=== PATIENT | female | born 1945 | race Caucasian/White ===

== ENCOUNTER 2022-01-19 23:25 | Emergency (ER) | payer OTHER ==
[~2022-01-19] VITALS: Ht 162.6 cm; Wt 86.2 kg
== END 2022-01-20 01:57 | disposition home or self-care (01) ==
LOC: ER 23:25
DX: S09.90XA Unspecified injury of head, initial encounter (principal); W22.8XXA Striking against or struck by other objects, initial encounter
CPT/HCPCS: 70450

== ENCOUNTER → 2022-08-07 | Outpatient (CLI) | payer MEDICARE ==
[2022-08-07 19:08] LABS: BASOPHILS ABSOLUTE AUTO 0.04 K/mm3 (0.00-0.23); BASOPHILS PERCENT AUTO 1 % (0-2); EOSINOPHILS PERCENT AUTO 3 % (0-6); Hematocrit 42.9 % (33.0-51.0); IMMATURE GRAN ABSOLUTE AUTO 0.01 K/mm3 (0.00-0.10); IMMATURE GRAN PERCENT AUTO 0 % (0-1); LYMPHOCYTES ABSOLUTE AUTO 2.81 K/mm3 (0.84-5.20); LYMPHOCYTES PERCENT AUTO 38 % (21-46); MONOCYTES ABSOLUTE AUTO 0.56 K/mm3 (0.16-1.47); MONOCYTES PERCENT AUTO 8 % (4-13); Mean Corpuscular HGB 29.5 pg (26.0-34.0); Mean Corpuscular HGB Conc 32.6 g/dL (31.5-36.5); Mean Corpuscular Volume 90 fL (80-100); Mean Platelet Volume 11.1 fL (9.1-12.4); NEUTROPHILS ABSOLUTE AUTO 3.76 K/mm3 (1.96-9.15); NEUTROPHILS PERCENT AUTO 51 % (41-73); Platelet Count 271 K/mm3 (150-400); RDW Coefficient Variation 13.2 % (11.7-14.2); RDW Standard Deviation 43.7 fL (35.1-46.3); Red Blood Cell Count 4.75 M/mm3 (3.80-5.20); White Blood Cell Count 7.38 K/mm3 (4.00-11.30)
[2022-08-07 20:00] LABS: Albumin, Blood 3.7 g/dL (3.4-5.0); Albumin/Globulin Ratio 0.9 (0.8-1.8); Bilirubin, Total 0.4 mg/dL (0.1-1.0); Calcium, Blood 9.5 mg/dL (8.5-10.1); Creatinine, Blood 0.58 mg/dL (0.40-1.00); Potassium, Blood 3.9 mmol/L (3.5-5.5); Total Protein, Blood 7.7 g/dL (6.4-8.2)
== END | disposition home or self-care (01) ==
LOC: LAB 17:50 → LAB SHORT 17:50
PROVIDERS: Physician Assistant
DX: R22.43 Localized swelling, mass and lump, lower limb, bilateral (principal)
CPT/HCPCS: 80053; 83880; 85025; 85379

== ENCOUNTER 2024-10-16 11:11 | Inpatient (IN) | payer OTHER, MEDICARE ==
[~2024-10-16] VITALS: Ht 162.6 cm; Wt 100.6 kg
[~2024-10-16 11:11] MED LIST: AMLODIPINE BESY10 MG PO; LEVE500 PO; LOSA25 PO; METF500 PO
[2024-10-16 11:42] LABS: BASOPHILS ABSOLUTE AUTO 0.04 K/mm3 (0.00-0.23); BASOPHILS PERCENT AUTO 1 % (0-2); EOSINOPHILS ABSOLUTE AUTO 0.19 K/mm3 (0.00-0.68); EOSINOPHILS PERCENT AUTO 2 % (0-6); Hematocrit 42.5 % (33.0-51.0); Hemoglobin 14.1 g/dL (11.5-16.0); IMMATURE GRAN ABSOLUTE AUTO 0.01 K/mm3 (0.00-0.10); IMMATURE GRAN PERCENT AUTO 0 % (0-1); LYMPHOCYTES ABSOLUTE AUTO 2.49 K/mm3 (0.84-5.20); LYMPHOCYTES PERCENT AUTO 30 % (21-46); MONOCYTES ABSOLUTE AUTO 0.66 K/mm3 (0.16-1.47); MONOCYTES PERCENT AUTO 8 % (4-13); Mean Corpuscular HGB Conc 33.2 g/dL (31.5-36.5); Mean Corpuscular Volume 93 fL (80-100); NEUTROPHILS ABSOLUTE AUTO 5.03 K/mm3 (1.96-9.15); NEUTROPHILS PERCENT AUTO 60 % (41-73); NRBC ABSOLUTE 0.00 K/mm3 (0.00-0.02); NRBC Auto 0.0 /100 WBC (0.0-0.2); Platelet Count 228 K/mm3 (150-400); RDW Coefficient Variation 13.0 % (11.7-14.2); RDW Standard Deviation 44.1 fL (35.1-46.3)
[2024-10-16 12:04] LABS: Alanine Aminotransfer (ALT/SGP 37.0 U/L (12-78); Albumin, Blood 3.2 g/dL (3.4-5.0); Albumin/Globulin Ratio 0.8 (0.8-1.8); Anion Gap 8.0 mmol/L (3-11); Aspartate Aminotrans (AST/SGOT 42.0 U/L (12-37); Bilirubin, Total 0.7 mg/dL (0.1-1.0); Blood Urea Nitrogen 16.0 mg/dL (8-24); CO2, Blood 27.0 mmol/L (21-32); Calcium, Blood 8.9 mg/dL (8.5-10.1); Chloride, Blood 107.0 mmol/L (98-108); Creatinine, Blood 0.51 mg/dL (0.40-1.00); Globulin, Blood 3.8 g/dL (2.2-4.0); Glucose, Blood 253.0 mg/dL (70-99); Potassium, Blood 3.5 mmol/L (3.5-5.5); Sodium, Blood 138.0 mmol/L (136-145); Total Protein, Blood 7.0 g/dL (6.4-8.2)
[2024-10-16 13:18] LABS: Source, Urine Clean Catch
[2024-10-16 13:24] LABS: Bilirubin, Urine Neg (Neg); Color, Urine Yellow (P-Yellow); Glucose Qualitative, Urine 4+ (Neg); Ketones, Urine 1+ (Neg); Leukocyte Esterase, Urine 2+ (Neg); Protein, Urine 2+ (Neg); Specific Gravity, Urine 1.025 (1.003-1.022); Urobilinogen, Urine NORM (Normal)
[2024-10-16 13:51] LABS: White Blood Cells, Urine 25-50 /hpf (0-5)
[2024-10-16] MEDS ORDERED: CefTRIAXone Sodium 1,000 MG in NS 100 ML IV ONE (14:20)
[2024-10-16] MEDS ORDERED: Insulin Human Lispro 100 Units/ML 3ML Syringe SC SCH (16:30)
[2024-10-16 17:04] VITALS: BP 165/90
--- NOTE | 2024-10-16 17:05 | NUR ---
PT TO ROOM 332 FROM ER.
[2024-10-16 19:30] VITALS: BP 162/83
[2024-10-16] MEDS ORDERED: Heparin Sodium,Porcine 5,000 UNIT/0.5 ML SDV SC SCH (21:00)
[2024-10-16] MEDS ORDERED: NS 1,000 ML IV SCH (21:55)
[2024-10-17 00:15] VITALS: BP 157/71
[2024-10-17 05:13] VITALS: BP 149/70
--- NOTE | 2024-10-17 05:42 | NUR ---
ENERGY DIRECTOR SUMMARY PT A&OX3, VSS, EXCEPT ELEVATED BP. PT REMAINS NPO, PENDING MRI AND SWALLOW SCREEN FOR STROKE LIKE S/SX. PT ON NS AT 75 ML/HR. PT REMAINS ON TELE. SR AT 81 W/ BBB. PT HAS BEEN ASLEEP FOR MOST OF THE NIGHT. CHEST RISE/RESPIRATIONS NOTED. COOPERATIVE W/ BEING WOKEN UP FOR ANY CARE/ASSESSMENTS. PT WAS LARGELY NONVERBAL DURING AM SHIFT WITH NODS OF YES OR NO AND SMALL PHRASES. STARTED THE PM SHIFT THAT WAY. HOWEVER, HAS IMPROVED. PT APPEARS MORE JOYFUL AND SPEAKS IN SHORT PHRASES MOST OF THE TIME. PT HAS HX OF STRESS INCONTINENCE. HAS ATTENDS ON. REQUIRES REGULAR CHANGING. HOWEVER, PT WILL ALSO ALERT STAFF OF NEED TO USE THE RESTROOM AT TIMES. PT REQUIRES 1PA W/ AMBULATION AND WILL USE CALL LIGHT APPROPRIATELY. BED RAILS UP X 2, BED IN LOWEST POSITION, BED WHEELS LOCKED, PERSONAL BELONGINGS AND CALL LIGHT WITHIN REACH.
[2024-10-17 06:15] LABS: BASOPHILS ABSOLUTE AUTO 0.05 K/mm3 (0.00-0.23); BASOPHILS PERCENT AUTO 1 % (0-2); EOSINOPHILS ABSOLUTE AUTO 0.17 K/mm3 (0.00-0.68); EOSINOPHILS PERCENT AUTO 2 % (0-6); Hematocrit 38.8 % (33.0-51.0); Hemoglobin 12.7 g/dL (11.5-16.0); IMMATURE GRAN ABSOLUTE AUTO 0.02 K/mm3 (0.00-0.10); IMMATURE GRAN PERCENT AUTO 0 % (0-1); LYMPHOCYTES ABSOLUTE AUTO 2.54 K/mm3 (0.84-5.20); LYMPHOCYTES PERCENT AUTO 35 % (21-46); MONOCYTES ABSOLUTE AUTO 0.62 K/mm3 (0.16-1.47); MONOCYTES PERCENT AUTO 9 % (4-13); Mean Corpuscular HGB Conc 32.7 g/dL (31.5-36.5); Mean Corpuscular Volume 94 fL (80-100); NEUTROPHILS ABSOLUTE AUTO 3.87 K/mm3 (1.96-9.15); NEUTROPHILS PERCENT AUTO 53 % (41-73); NRBC ABSOLUTE 0.00 K/mm3 (0.00-0.02); NRBC Auto 0.0 /100 WBC (0.0-0.2); Platelet Count 220 K/mm3 (150-400); RDW Coefficient Variation 13.2 % (11.7-14.2); RDW Standard Deviation 44.9 fL (35.1-46.3)
[2024-10-17 06:38] LABS: Alanine Aminotransfer (ALT/SGP 31.0 U/L (12-78); Albumin, Blood 2.7 g/dL (3.4-5.0); Albumin/Globulin Ratio 0.8 (0.8-1.8); Anion Gap 6.0 mmol/L (3-11); Aspartate Aminotrans (AST/SGOT 30.0 U/L (12-37); Bilirubin, Total 0.8 mg/dL (0.1-1.0); Blood Urea Nitrogen 13.0 mg/dL (8-24); CO2, Blood 27.0 mmol/L (21-32); Calcium, Blood 8.1 mg/dL (8.5-10.1); Chloride, Blood 111.0 mmol/L (98-108); Creatinine, Blood 0.51 mg/dL (0.40-1.00); Globulin, Blood 3.4 g/dL (2.2-4.0); Glucose, Blood 172.0 mg/dL (70-99); Potassium, Blood 3.3 mmol/L (3.5-5.5); Sodium, Blood 141.0 mmol/L (136-145); Total Protein, Blood 6.1 g/dL (6.4-8.2)
[2024-10-17 07:14] VITALS: BP 172/88
[2024-10-17] MEDS ORDERED: CefTRIAXone Sodium 1,000 MG in NS 100 ML IV SCH (09:00)
[2024-10-17 11:32] VITALS: BP 156/78
--- NOTE | 2024-10-17 17:07 | NUR ---
SHIFT SUMMARY PT IS A/OX3-4. UP WITH 1 PERSON ASSIST WITH FWW AND GB TO THE BSC/CHAIR. MRI AND CT COMPLETE THIS SHIFT. PT CONTINUES EXPERIENCING SLOW SPEECH AND LIMITED TO FEW WORDS PHRASES, HOWEVER WITH NOTICABLE INPROVEMENT WHEN COMPARED TO YESTERDAY. PT WEAK IN BILAT UPPER AND BILAT LOWER EXTREMITIES WITH NO GREATER SIGNIFICANT WEAKNESS ASSESSED ON ONE SIDE COMPARED TO THE OTHER. ON TELE RUNNING NORMAL SINUS RYTHYM IN THE 80'S. FAMILY AT BEDSIDE THIS AFTERNOON. PT IS PLEASANT AND COOPERATIVE WITH CARE.
[2024-10-17 17:12] LABS: CHOL/HDL RATIO 6.0; Cholesterol 191 mg/dL (50-200); HDL Cholesterol 32 mg/dL (>39); LDL/HDL RATIO 3.2; Low Density Lipoprotein Chol 101 mg/dL (0-110); Triglycerides 289 mg/dL (30-160); Very Low Density Lipoprot Chol 57 mg/dL (6-32)
[2024-10-17 19:58] VITALS: BP 159/87
[2024-10-17] MEDS ORDERED: Polyethylene Glycol 3350 17 gm PO SCH (22:40)
[2024-10-18 01:07] VITALS: BP 165/77
--- NOTE | 2024-10-18 04:32 | NUR ---
SHIFT SUMMARY PATIENT HAD NO ACUTE CHANGES. ALERT ORIENTED AND ONE HEAVY ASSIST W/FWW TO BR. DENIES CHEST PAIN, SOB, AND N/V. VSS/AFEBRILE. PIV INTACT. SLOW TO SPEAK. NS INFUSING @ 75 mL/HR. CBG 290. HOSPITALIST [employer] ORDERED BOWEL CARE MEDS FOR CONSTIPATION AND GIVEN. CALL LIGHT IN REACH. BED IN LOWEST POSITION. WILL CONTINUE TO MONITOR UNTIL DAY SHIFT NURSE ASSUMES CARE.
[2024-10-18 04:51] VITALS: BP 158/87
[2024-10-18 05:38] LABS: BASOPHILS ABSOLUTE AUTO 0.04 K/mm3 (0.00-0.23); BASOPHILS PERCENT AUTO 1 % (0-2); EOSINOPHILS ABSOLUTE AUTO 0.24 K/mm3 (0.00-0.68); EOSINOPHILS PERCENT AUTO 4 % (0-6); Hematocrit 37.4 % (33.0-51.0); Hemoglobin 12.2 g/dL (11.5-16.0); IMMATURE GRAN ABSOLUTE AUTO 0.02 K/mm3 (0.00-0.10); IMMATURE GRAN PERCENT AUTO 0 % (0-1); LYMPHOCYTES ABSOLUTE AUTO 2.59 K/mm3 (0.84-5.20); LYMPHOCYTES PERCENT AUTO 42 % (21-46); MONOCYTES ABSOLUTE AUTO 0.51 K/mm3 (0.16-1.47); MONOCYTES PERCENT AUTO 8 % (4-13); Mean Corpuscular HGB Conc 32.6 g/dL (31.5-36.5); Mean Corpuscular Volume 93 fL (80-100); NEUTROPHILS ABSOLUTE AUTO 2.80 K/mm3 (1.96-9.15); NEUTROPHILS PERCENT AUTO 45 % (41-73); NRBC ABSOLUTE 0.00 K/mm3 (0.00-0.02); NRBC Auto 0.0 /100 WBC (0.0-0.2); Platelet Count 189 K/mm3 (150-400); RDW Coefficient Variation 12.9 % (11.7-14.2); RDW Standard Deviation 44.4 fL (35.1-46.3)
[2024-10-18 06:03] LABS: Anion Gap 8.0 mmol/L (3-11); Blood Urea Nitrogen 11.0 mg/dL (8-24); CO2, Blood 25.0 mmol/L (21-32); Calcium, Blood 8.1 mg/dL (8.5-10.1); Chloride, Blood 109.0 mmol/L (98-108); Creatinine, Blood 0.48 mg/dL (0.40-1.00); Glucose, Blood 204.0 mg/dL (70-99); Potassium, Blood 3.6 mmol/L (3.5-5.5); Sodium, Blood 138.0 mmol/L (136-145)
[2024-10-18 07:54] VITALS: BP 201/95
--- NOTE | 2024-10-18 09:12 | NUR ---
pt up to chair, she is a/ox3-4, pleasant and cooperative with care, follows commands well, lungs are clear in upper haas, dim in bases, resp even and unlabored, no cough noted, on r/a, hrr, tele in place running sr at 75bpm, see strip, 2+ edema noted to b/l le, ppp+1, cap refill <3 sec, vs stable, afebrile, piv to lac site is clear and patent, infusing ns at 75mls/hr, btx4, abd flat soft nontender, voids via bathroom, skin c/w/d, whitley, rocío, call light in reach.
[2024-10-18 11:23] VITALS: BP 192/102
[2024-10-18 15:44] VITALS: BP 175/91
--- NOTE | 2024-10-18 19:01 | NUR ---
pt doing ok, states she's feeling good, but is a bit constipated, did give her miralax this am, she asked for prune juice this evening, this was given, no acute changes this shift. call light in reach.
[2024-10-18] MEDS ORDERED: MetFORMIN HCl 500 mg PO SCH (21:00)
[2024-10-18] MEDS ORDERED: Misc. Tablet PO SCH (21:00)
[2024-10-18 21:21] VITALS: BP 186/89
--- NOTE | 2024-10-18 22:41 | NUR ---
MEDICATION UPDATE PHARMACY CALLED REQUESTING FURTHER INFO ON PT KEPPRA DOSE, STATING MED REC & MED LABEL ON BOTTLE ON OWN HOME MED DONT MATCH. PRIMARY RN ON BREAK. PT ASKING THIS RN IF ITS BREAKFAST TIME & UNAWARE IT IS NIGHT TIME. CALLED DAUGHTER MATEO & SHE IS AWARE OF ALL MEDS PT TAKES. DAUGHTER STATES PT HAS BEEN WEENING HERSELF OFF THE 500MG BID KEPPRA ORDER. THAT SHE CUTS THE 500MG TABLET & TAKES ONE 1/2 IN THE MORNING & ONE 1/2 IN EVENING, EQUALING 250MG BID. DAUGHTER REPORTS THAT PTS PRIMARY DR MENTIONED WEENING HER OFF BUT WHEN THEY HAVE IN THE PAST PT THEN HAS HAD SEIZURES, THEREFORE THEY HAVENT TAKEN PT OFF KEPPRA. RADHA REPORTS PTS LAST DOSE WAS 250MG ONCE PROBABLY ON SATURDAY 10/14. INFORMED PHARMACY & PRIMARY RN ON KEPPRA DOSING.
--- NOTE | 2024-10-18 23:33 | NUR ---
PT HAVING MULTIPLE INCONTINENCE EPISODES AND HAS FREQUENT URGENCY DUE TO UTI. PUREWICK APPLIED FOR COMFORT SO PT COULD GET REST. PT TOLERATED WELL AND AGREED TO PLACEMENT.
--- NOTE | 2024-10-18 23:57 | NUR ---
CALLED CYTOLOGY TEACHER PROVIDER TO INFORM HIM OF PT ELEVATED BLOOD PRESSURE. NEW TELEPHONE ORDERS OBTAINED TO GIVE HYDRALAZINE 25 MG TO MAINTAIN SBP <180. WILL CONTINUE TO MONITOR.
[2024-10-19] VITALS (8 sets, daily range): BP systolic 139–185; BP diastolic 62–100
[2024-10-19 05:27] LABS: BASOPHILS ABSOLUTE AUTO 0.04 K/mm3 (0.00-0.23); BASOPHILS PERCENT AUTO 1 % (0-2); EOSINOPHILS ABSOLUTE AUTO 0.23 K/mm3 (0.00-0.68); EOSINOPHILS PERCENT AUTO 3 % (0-6); Hematocrit 41.0 % (33.0-51.0); Hemoglobin 13.5 g/dL (11.5-16.0); IMMATURE GRAN ABSOLUTE AUTO 0.04 K/mm3 (0.00-0.10); IMMATURE GRAN PERCENT AUTO 1 % (0-1); LYMPHOCYTES ABSOLUTE AUTO 2.58 K/mm3 (0.84-5.20); LYMPHOCYTES PERCENT AUTO 38 % (21-46); MONOCYTES ABSOLUTE AUTO 0.51 K/mm3 (0.16-1.47); MONOCYTES PERCENT AUTO 8 % (4-13); Mean Corpuscular HGB Conc 32.9 g/dL (31.5-36.5); Mean Corpuscular Volume 93 fL (80-100); NEUTROPHILS ABSOLUTE AUTO 3.40 K/mm3 (1.96-9.15); NEUTROPHILS PERCENT AUTO 50 % (41-73); NRBC ABSOLUTE 0.00 K/mm3 (0.00-0.02); NRBC Auto 0.0 /100 WBC (0.0-0.2); Platelet Count 215 K/mm3 (150-400); RDW Coefficient Variation 12.8 % (11.7-14.2); RDW Standard Deviation 43.9 fL (35.1-46.3)
[2024-10-19 05:51] LABS: Anion Gap 11.0 mmol/L (3-11); Blood Urea Nitrogen 11.0 mg/dL (8-24); CO2, Blood 23.0 mmol/L (21-32); Calcium, Blood 8.7 mg/dL (8.5-10.1); Chloride, Blood 109.0 mmol/L (98-108); Creatinine, Blood 0.5 mg/dL (0.40-1.00); Glucose, Blood 143.0 mg/dL (70-99); Potassium, Blood 3.6 mmol/L (3.5-5.5); Sodium, Blood 139.0 mmol/L (136-145)
--- NOTE | 2024-10-19 05:53 | NUR ---
SHIFT SUMMARY PT A&OX3-4. INTERMITTENT CONFUSION AND FORGETFULLNESS. ABLE TO MAKE ALL NEEDS KNOWN AND USES CALL LIGHT APPROPRIATELY. FLUIDS INFUSING AT 75 ML/HR PER ORDERS. PT HAD MULTIPLE INCONTINENT BLADDER EPISODES THROUGHOUT SHIFT. PT STILL CALLED TO USE RESTROOM BUT HAD ALREADY WENT. ATTEMPTED PUREWICK WITHOUT GOOD RESULTS. BEDDING CHANGED MULTIPLE TIMES ALONG WITH PTS GOWN. PT TOLERATED WELL AND IS VERY PLEASANT. PT CONTINUES TO HAVE 2+ PITTING EDEMA TO BLE. DENIES ANY BURNING OR PAIN WITH URINATION, JUST URGENCY. PT CURRENTLY SLEEPING IN BED AT LOWEST POSITION WITH CALL LIGHT WITHIN REACH.
--- NOTE | 2024-10-19 07:58 | NUR ---
pt up to chair with sba, a/ox4, pleasant and cooperative with care, reports a good night last night, and that she feels ok this am, no complaints, lungs are clear in upper haas, dim in bases, resp even and unlabored, no cough noted, on r/a, hrr, tele in place running sr in 70's to 80's, 1+ edema noted to b/l le, ppp+1, cap refill<3 sec, vs stable, afebrile, piv to lfa, site is clear and patent, btx4, abd flat soft nontender, voids via purwick, briefs, is incont, skin c/w/d, maew, ambulates with walker and sba, rocío, call light in reach.
--- NOTE | 2024-10-19 14:37 | NUR ---
pt became very tired after eating sitting up in a chair, started to slide out of the chair, v.s. were checked and wnl, cbg was checked, was 246, and recieved 2 units befor lunch. pt seems a bit lethargic, but is oriented, and states she's just sleepy. got her back to bed, call light in reach.
--- NOTE | 2024-10-19 18:39 | NUR ---
pt has been back to her baseline, able to stand and ambulate to the bathroom with sba, no further changes this shift. call light in reach.
[2024-10-20 00:16] VITALS: BP 173/78
--- NOTE | 2024-10-20 04:03 | NUR ---
SHIFT SUMMARY PATIENT HAD NO ACUTE CHANGES. ALERT ORIENTED WITH FLAT AFFECT. ONE ASSIST W/FWW GB TO BR. DENIES CHEST PAIN, SOB, AND N/V. VSS/AFEBRILE. CBG 234. PIV INTACT. TELE MONITOR NSR 82. NO NEURO CHANGES. WILL CALL. CALL LIGHT IN REACH. BED IN LOWEST WILL CONTINUE TO MONITOR UNTIL DAY SHIFT NURSE ASSUMES CARE.
[2024-10-20 05:02] VITALS: BP 144/71
[2024-10-20 05:58] LABS: BASOPHILS ABSOLUTE AUTO 0.04 K/mm3 (0.00-0.23); BASOPHILS PERCENT AUTO 1 % (0-2); EOSINOPHILS ABSOLUTE AUTO 0.24 K/mm3 (0.00-0.68); EOSINOPHILS PERCENT AUTO 4 % (0-6); Hematocrit 39.5 % (33.0-51.0); Hemoglobin 12.9 g/dL (11.5-16.0); IMMATURE GRAN ABSOLUTE AUTO 0.01 K/mm3 (0.00-0.10); IMMATURE GRAN PERCENT AUTO 0 % (0-1); LYMPHOCYTES ABSOLUTE AUTO 2.62 K/mm3 (0.84-5.20); LYMPHOCYTES PERCENT AUTO 44 % (21-46); MONOCYTES ABSOLUTE AUTO 0.47 K/mm3 (0.16-1.47); MONOCYTES PERCENT AUTO 8 % (4-13); Mean Corpuscular HGB Conc 32.7 g/dL (31.5-36.5); Mean Corpuscular Volume 93 fL (80-100); NEUTROPHILS ABSOLUTE AUTO 2.63 K/mm3 (1.96-9.15); NEUTROPHILS PERCENT AUTO 44 % (41-73); NRBC ABSOLUTE 0.00 K/mm3 (0.00-0.02); NRBC Auto 0.0 /100 WBC (0.0-0.2); Platelet Count 207 K/mm3 (150-400); RDW Coefficient Variation 13.2 % (11.7-14.2); RDW Standard Deviation 44.8 fL (35.1-46.3)
[2024-10-20 06:15] LABS: Anion Gap 8.0 mmol/L (3-11); Blood Urea Nitrogen 15.0 mg/dL (8-24); CO2, Blood 26.0 mmol/L (21-32); Calcium, Blood 8.8 mg/dL (8.5-10.1); Chloride, Blood 109.0 mmol/L (98-108); Creatinine, Blood 0.6 mg/dL (0.40-1.00); Glucose, Blood 144.0 mg/dL (70-99); Potassium, Blood 3.9 mmol/L (3.5-5.5); Sodium, Blood 139.0 mmol/L (136-145)
[2024-10-20] MEDS ORDERED: CefTRIAXone 1000 MG Vial ONE (07:47)
--- NOTE | 2024-10-20 08:10 | NUR ---
[facility]- [facility] [phone] DAUGHTER
[2024-10-20 11:14] VITALS: BP 143/73
[2024-10-20] MEDS ORDERED: ATOR80 PO (12:41)
[2024-10-20] MEDS ORDERED: CLOP75 PO (12:42)
[2024-10-20] MEDS ORDERED: ASPI81CH PO (12:43)
[2024-10-20] MEDS ORDERED: JARDIANCE25 MG PO (12:43)
[2024-10-20] MEDS ORDERED: PROTONIX4010 PO (12:46)
[2024-10-20 15:10] VITALS: BP 142/71
--- NOTE | 2024-10-20 17:11 | NUR ---
SHIFT SUMMARY: A&OX4 THROUGHOUT SHIFT. D/C PACKET PREPARED FOR PT. IV AND TELE REMOVED. REPORT TO YOANA MCKAY.
== END 2024-10-20 18:38 | disposition home health service (06) | DRG 65 ==
LOC: ER 11:11 → MEDS 14:47
PROVIDERS: Emergency Medicine; ADMIT Internal Medicine
DX: I63.521 Cerebral infarction due to unspecified occlusion or stenosis of right anterior cerebral artery (principal); G81.91 Hemiplegia, unspecified affecting right dominant side; N39.0 Urinary tract infection, site not specified; I10 Essential (primary) hypertension; G40.909 Epilepsy, unspecified, not intractable, without status epilepticus; E78.5 Hyperlipidemia, unspecified; E11.65 Type 2 diabetes mellitus with hyperglycemia; Z98.890 Other specified postprocedural states; Z85.841 Personal history of malignant neoplasm of brain; W01.0XXA Fall on same level from slipping, tripping and stumbling without subsequent striking against object, initial encounter; Z88.2 Allergy status to sulfonamides; Z79.84 Long term (current) use of oral hypoglycemic drugs; Z79.899 Other long term (current) drug therapy; F03.90 Unspecified dementia, unspecified severity, without behavioral disturbance, psychotic disturbance, mood disturbance, and anxiety
CPT/HCPCS: 36415; 70450; 70496; 70551; 71045; 73560-RT; 80048; 80053; 80061; 81001; 82947; 83036; 83880; 84484; 85025; 87077; 87086; 87186; 92610; 93005; 93010; 93306; 96365; 96366; 96372; 97110; 97112; 97161; 97165; 97530; 97535; 99285-25; A9270; G0378; J0696; J1644; J7030; Q9967